=== PATIENT | female | born 1990 | race Caucasian/White ===

== ENCOUNTER 2021-11-03 15:46 | Emergency (ER) | payer MEDICAID ==
[2021-11-03] MEDS ORDERED: NO HOME MEDS (20:23)
== END 2021-11-03 16:59 | disposition left against medical advice (07) ==
LOC: ER 15:48
DX: Z53.21 Procedure and treatment not carried out due to patient leaving prior to being seen by health care provider (principal)

== ENCOUNTER 2021-11-03 17:58 | Emergency (ER) | payer MEDICAID ==
[~2021-11-03] VITALS: Ht 152.4 cm; Wt 52.3 kg
[2021-11-03 19:06] LABS: BASOPHILS # (AUTO) 0.1 X10'3 (0-0.2); EOSINOPHILS # (AUTO) 0.1 X10'3 (0-0.9); EOSINOPHILS % (AUTO) 1.2 % (0-6); HEMATOCRIT 41.8 % (35.0-45.0); LYMPHOCYTES # (AUTO) 2.4 X10'3 (1.1-4.8); LYMPHOCYTES % (AUTO) 31.3 % (21-51); MEAN CORPUSCULAR HEMOGLOBIN 30.4 PG (27.0-31.0); MEAN CORPUSCULAR HGB CONC 33.5 g/dL (33.0-36.5); MEAN CORPUSCULAR VOLUME 90.8 FL (78-98); MEAN PLATELET VOLUME 7.5 FL (7.4-10.4); MONOCYTES # (AUTO) 0.6 X10'3 (0-0.9); MONOCYTES % (AUTO) 7.9 % (2-12); NEUTROPHILS # (AUTO) 4.5 X10'3 (1.8-7.7); NEUTROPHILS % (AUTO) 58.6 % (42-75); PLATELET COUNT 402 X10'3 (140-440); RED BLOOD COUNT 4.61 X10'6 (4.20-5.60); RED CELL DISTRIBUTION WIDTH 14.1 % (11.5-14.5); WHITE BLOOD COUNT 7.6 X10'3 (4.5-11.0)
[2021-11-03 19:14] LABS: ALANINE AMINOTRANSFERASE 21 U/L (12-78); ALBUMIN 4.1 G/DL (3.4-5.0); ALBUMIN/GLOBULIN RATIO 1.4 (1.1-1.5); ALKALINE PHOSPHATASE 62 IU/L (46-116); ANION GAP 8 (8-16); ASPARTATE AMINO TRANSFERASE 15 U/L (10-37); BILIRUBIN,TOTAL 2.1 MG/DL (0.1-1.0); BLOOD UREA NITROGEN 8 MG/DL (7-18); CALCIUM 8.9 MG/DL (8.5-10.1); CHLORIDE 107 MMOL/L (99-107); GLUCOSE 97 MG/DL (70-104); POTASSIUM 3.4 MMOL/L (3.5-5.1); SODIUM 141 MMOL/L (135-145); TOTAL CARBON DIOXIDE 25.6 MMOL/L (24-32); TOTAL PROTEIN 7.1 G/DL (6.4-8.2); eGFR 84 ML/MIN
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
--- NOTE | 2021-11-03 20:06 | NUR ---
The patient moved to bed 25 in the ER. She is paranoid and guarded. She reports last meth use 3 days ago. She denies any problems. She is uncooperative with changing her clothes or giving a urine sample. She denies psychotic symptoms. She is not cooperative with giving a history. She is refusing to allow staff to have a family member contacted. She has 4 minor children who states "they should be with my sister" She denies there is a family history of mental illness. She denies any kind of psychiatric history.
[2021-11-03] MEDS ORDERED: NO HOME MEDS (20:23)
--- NOTE | 2021-11-03 21:09 | NUR ---
The patient was requested again to give a urine sample. She asked why because she was not on a hold and she was made aware that she is on a 5150 hold and that the urine was needed for part of her clearance for mental health. She did then give a urine specimen.
[2021-11-03 21:18] LABS: CLARITY,URINE CLEAR (Clear); COLOR,URINE YELLOW (Yellow); GLUCOSE, URINE NEGATIVE (Neg); KETONES,URINE TRACE mg/dl (Neg); LEUKOCYTE ESTERASE ,URINE NEGATIVE (Neg); NITRITES, URINE NEGATIVE (Neg); OCCULT BLOOD,URINE NEGATIVE (Neg); PROTEIN,URINE NEGATIVE (Neg); UROBILINOGEN,URINE 0.2 E.U/dL (0.2-1.0)
[2021-11-03 21:21] LABS: UA COLLECTION TYPE VOIDED
[2021-11-03 21:24] LABS: URINE AMPHETAMINE SCREEN POSITIVE (Neg); URINE BARBITUATE SCREEN NEGATIVE (Neg); URINE BENZODIAZEPINES SCREEN NEGATIVE (Neg); URINE CANNABINOID SCREEN NEGATIVE (Neg); URINE COCAINE SCREEN NEGATIVE (Neg); URINE METHADONE SCREEN NEGATIVE (Neg); URINE OPIATE SCREEN NEGATIVE (Neg); URINE PHENCYCLIDINE SCREEN NEGATIVE (Neg)
--- NOTE | 2021-11-03 21:59 | NUR ---
PA at the bedside to interview and examine the patient
--- NOTE | 2021-11-03 23:49 | NUR ---
The patient appears to be sleeping
--- NOTE | 2021-11-04 01:27 | NUR ---
THe patient appears to be sleeping
--- NOTE | 2021-11-04 02:26 | NUR ---
The patient appears to be sleeping
--- NOTE | 2021-11-04 04:23 | NUR ---
The patient appears to be sleeping
--- NOTE | 2021-11-04 05:36 | NUR ---
The patient appears to be sleeping
--- NOTE | 2021-11-04 05:49 | NUR ---
Packet sent to [facility]
--- NOTE | 2021-11-04 06:30 | NUR ---
Pt. in her bed and appears to be sleeping, no distress noted.
--- NOTE | 2021-11-04 08:00 | NUR ---
Davide mon in ED - 11/04/21 at 0838 by MIKE Pt. awoke to recieve breqakfast; refused to eat.
--- NOTE | 2021-11-04 08:00 | NUR ---
Pt. awoke to recieve breakfast; refused to eat.
[2021-11-04] MEDS ORDERED: hydrOXYzine 25 MG tablet PO ONE (09:10)
[2021-11-04] MEDS ORDERED: NICOTINE POLACRILEX 4 MG LOZENGE BC PRN (09:10)
[2021-11-04] MEDS ORDERED: LORazepam 1 MG tablet PO ONE (09:10)
[2021-11-04] MEDS ORDERED: NICOTINE POLACRILEX 2 MG LOZENGE BC PRN (09:24)
--- NOTE | 2021-11-04 10:00 | NUR ---
Pt. is pacing near her bed while using the phone.
--- NOTE | 2021-11-04 11:39 | NUR ---
Pt. pacing, approaching nurses station presenting as agitated, hyperverbal, and labile. Pt. offered PRN; pt. refused. She is unable to be redirected and continually request " I want off this hold, its not legal" Pt. currently at the bedside with MH worker.
--- NOTE | 2021-11-04 12:30 | NUR ---
Recieved a call from [facility] spoke to Eben harmon pt. Hx and labs. [facility] is looking at accepting pt. they will review the pkt. further and call back.
--- NOTE | 2021-11-04 12:56 | NUR ---
Recieved a call from Kristina Griggs Pt. gave verbal consent to speak to her sister. Her number is [phone] for any further contact.
--- NOTE | 2021-11-04 13:20 | NUR ---
Pt. OLESYA yelling at staff, presenting as agitated, elevated resulting in escalation on the unit. Security was called. PRN pulled and offered; medication was refused.
--- NOTE | 2021-11-04 14:01 | NUR ---
Recieved a call from [facility] repoting [facility] will accept after Hcg, ETOH labs are complete. Labs ordered.
[2021-11-04 14:59] LABS: BETA HCG,QUANTITATIVE < 1.0 mIU/ml
[2021-11-04 15:01] LABS: ETHANOL < 0.010 GM/DL (0.0-0.010)
--- NOTE | 2021-11-04 16:00 | NUR ---
Pt. awake sitting on bed using the telephone. No s/sx of distress.
--- NOTE | 2021-11-04 16:52 | NUR ---
Pt. approached health technical writer, requesting visiting info for her mother. Information was provided and pt. became labile and elevated, and started yelling at staff "this is not a legal hold, she can get me out of here." Pt. was advised to lower her voice and return to her room; she complied, no further issues at this time.
--- NOTE | 2021-11-04 17:11 | NUR ---
Recieved a phone call from [facility], pt. has been accepted by [facility] and will p/u at [id number].
[2021-11-04] MEDS ORDERED: OLANZapine **IM** 10 mg inj. IM ONE (19:15)
[2021-11-04] MEDS ORDERED: diphenhydrAMINE 50 mg/ml inj IM ONE (19:15)
--- NOTE | 2021-11-04 19:20 | NUR ---
The patient has been made aware that [facility] She asked questions as to why she was being transferred and stated that she was expecting to be discharged. She was made aware again of the 5150 process and that she indeed would not be discharaged.
--- NOTE | 2021-11-04 20:58 | NUR ---
The patient is up at the nursing station. She is irritable but is cooperative.
[2021-11-04 21:04] VITALS: BP 89/53
== END 2021-11-04 21:07 ==
LOC: ER 17:59
DX: F22 Delusional disorders (principal); Z20.822 Contact with and (suspected) exposure to COVID-19; E86.0 Dehydration; F15.90 Other stimulant use, unspecified, uncomplicated
CPT/HCPCS: 36415; 80053; 80305; 80320; 81003; 84443; 84702; 85025; 87635; 99285; C9803

== ENCOUNTER 2023-09-18 18:53 | Emergency (ER) | payer SELFPAY ==
[~2023-09-18] VITALS: Ht 157.5 cm; Wt 56.8 kg
[~2023-09-18 18:53] MED LIST: NO HOME MEDS
[2023-09-18 20:45] VITALS: BP 129/86; PULSE 92; RESP 16; TEMP 98; O2SAT 97
== END 2023-09-18 20:49 ==
LOC: ER 18:54
DX: S20.219A Contusion of unspecified front wall of thorax, initial encounter (principal); F15.90 Other stimulant use, unspecified, uncomplicated; X58.XXXA Exposure to other specified factors, initial encounter; Y93.89 Activity, other specified; Y92.89 Other specified places as the place of occurrence of the external cause; Y99.8 Other external cause status
CPT/HCPCS: 36415; 71045; 84702; 93005; 99285